=== PATIENT | male | born 1995 | race African-American/Black ===

== ENCOUNTER 2022-01-09 21:37 | Emergency (ER) | payer SELFPAY ==
[~2022-01-09] VITALS: Ht 167.6 cm; Wt 84.1 kg
[2022-01-09 21:45] VITALS: TEMP 102.1
[2022-01-10 00:28] VITALS: BP 114/68; PULSE 91
== END 2022-01-10 00:36 | disposition home or self-care (01) ==
LOC: COL.ER 21:37
DX: J10.1 Influenza due to other identified influenza virus with other respiratory manifestations (principal); F17.200 Nicotine dependence, unspecified, uncomplicated; Z20.822 Contact with and (suspected) exposure to COVID-19